=== PATIENT | female | born 1990 | race Hispanic/Latino ===

== ENCOUNTER 2019-05-31 15:00 | Emergency (ER) | payer SELFPAY ==
[~2019-05-31] VITALS: Ht 144.8 cm; Wt 52.2 kg
[~2019-05-31 15:00] MED LIST: DEPAKOTE500 MG; MOTRIN200 MG PO; ULTRACET TABLE1 EACH
[2019-05-31] MEDS ORDERED: DIPHENHYDRAMINE HCL 25 MG CAP PO ONE (15:30)
[2019-05-31] MEDS ORDERED: FAMOTIDINE 20 MG TAB PO ONE (15:30)
[2019-05-31] MEDS ORDERED: DIPHENHYDRAMINE HCL 25 MG CAP ONE (15:37)
[2019-05-31] MEDS ORDERED: FAMOTIDINE 20 MG TAB ONE (15:38)
--- NOTE | 2019-05-31 15:38 | NUR ---
No answer from lobby at this time.
== END 2019-05-31 15:46 | disposition left against medical advice (07) ==
LOC: ER 15:00
DX: M79.672 Pain in left foot (principal); M79.671 Pain in right foot

== ENCOUNTER 2025-02-08 09:53 | Emergency (ER) | payer OTHER ==
[~2025-02-08] VITALS: Ht 144.8 cm; Wt 68.0 kg
[2025-02-08 10:11] VITALS: PULSE 87; RESP 18; TEMP 98.2; O2SAT 100
[2025-02-08 10:50] LABS: BASOPHILS % 0.8 % (0.0-1.0); EOSINOPHILS # (AUTO) 0.2 (0.0-0.4); EOSINOPHILS % 4.6 % (0.0-6.0); HEMATOCRIT 33.3 % (34.2-44.1); LYMPHOCYTES # (AUTO) 1.9 (1.0-3.2); LYMPHOCYTES % 35.4 % (18.0-39.1); MEAN CORPUSCULAR VOLUME 73.3 fL (81-99); MONOCYTES # (AUTO) 0.5 (0.2-0.8); MONOCYTES % 8.8 % (4.4-11.3); NEUTROPHILS # (AUTO) 2.6 (2.1-6.9); NEUTROPHILS % 50.2 % (38.7-80.0); PLATELET COUNT 302 x10e3/uL (140-360); RED BLOOD COUNT 4.54 x10e6/uL (3.6-5.1); RED CELL DISTRIBUTION WIDTH 20.7 % (11.7-14.4); WHITE BLOOD COUNT 5.22 x10e3/uL (4.8-10.8)
[2025-02-08 11:11] LABS: INR 0.85; PROTHROMBIN TIME 12.2 seconds (11.9-14.5)
[2025-02-08 11:12] LABS: PARTIAL THROMBOPLASTIN TIME 28.6 seconds (23.8-35.5)
[2025-02-08 11:14] LABS: BILIRUBIN,URINE NEGATIVE (NEGATIVE); CLARITY,URINE SL CLOUDY (CLEAR); COLOR,URINE YELLOW (YELLOW); GLUCOSE, URINE NEGATIVE (NEGATIVE); KETONES,URINE NEGATIVE (NEGATIVE); LEUKOCYTE ESTERASE ,URINE NEGATIVE (NEGATIVE); NITRITE,URINE NEGATIVE (NEGATIVE); PH,URINE 5.5 (5 - 7); PROTEIN,URINE DIPSTICK NEGATIVE (NEGATIVE); URINE UROBILINOGEN 0.2 mg/dL (0.2 - 1)
[2025-02-08] MEDS: SODIUM CHLORIDE 0.9% 1000ML 1,000 ML IV STA (11:14)
[2025-02-08 11:52] LABS: BACTERIA,URINE MODERATE /HPF; EPITHELIAL CELLS,URINE MODERATE /LPF
[2025-02-08] MEDS ORDERED: IOPAMIDOL 370 MG/ML 100 ML INFUS..BTL INJ ONE (12:00)
[2025-02-08 12:33] LABS: ALBUMIN 3.9 g/dL (3.5-5.0); ALBUMIN/GLOBULIN RATIO 1.1 (0.8-2.0); ANION GAP 17.3 mmol/L (8-16); BILIRUBIN,TOTAL 0.2 mg/dL (0.2-1.2); CALCIUM 8.7 mg/dL (8.4-10.2); CREATININE, SERUM 0.75 mg/dL (0.57-1.11); POTASSIUM 4.3 mmol/L (3.5-5.1); TOTAL PROTEIN 7.3 g/dL (6.5-8.1)
[2025-02-08] MEDS ORDERED: DICYCLOMINE HCL20 MG PO (15:24)
== END 2025-02-08 15:39 | disposition home or self-care (01) ==
LOC: ER 09:55
DX: R10.31 Right lower quadrant pain (principal); N83.202 Unspecified ovarian cyst, left side; R11.2 Nausea with vomiting, unspecified; R19.7 Diarrhea, unspecified; F31.9 Bipolar disorder, unspecified; F41.9 Anxiety disorder, unspecified; F17.210 Nicotine dependence, cigarettes, uncomplicated
CPT/HCPCS: 36415; 71260; 74177; 80053; 81001; 83690; 84702; 85025; 85610; 85730; 99284; J7030; Q9967

== ENCOUNTER 2025-07-25 11:58 | Emergency (ER) | payer OTHER ==
[~2025-07-25] VITALS: Ht 144.8 cm; Wt 65.8 kg
[~2025-07-25 11:58] MED LIST changes: +DICYCLOMINE HCL20 MG PO
[2025-07-25 12:07] VITALS: TEMP 97.6
[2025-07-25] MEDS ORDERED: SODIUM CHLORIDE 0.9% 1000ML 1,000 ML ONE (12:17)
[2025-07-25] MEDS ORDERED: ONDANSETRON HCL INJ 2MG/ML 2ML 2 MG/ML VIAL ONE (12:17)
[2025-07-25 12:31] LABS: BASOPHILS % 0.3 % (0.0-1.0); EOSINOPHILS % 0.0 % (0.0-6.0); LYMPHOCYTES % 10.3 % (18.0-39.1); MONOCYTES % 2.9 % (4.4-11.3); NEUTROPHILS % 86.2 % (38.7-80.0); RED CELL DISTRIBUTION WIDTH 17.3 % (11.7-14.4)
[2025-07-25] MEDS: DIPHENHYDRAMINE HCL 25 MG CAP PO ONE (12:36)
[2025-07-25 12:46] LABS: EST GLOMERULAR FILTRATION RATE 117.0 ML/MIN (>=60)
[2025-07-25] MEDS: SODIUM CHLORIDE 0.9% 1000ML 1,000 ML IV SCH (12:48)
[2025-07-25] MEDS: KETOROLAC TROMETHAMINE 30 MG/ML VIAL IV STA (12:53)
[2025-07-25] MEDS: METOCLOPRAMIDE HCL 10 MG/2ML VIAL IV ONE (12:54)
[2025-07-25] MEDS: ONDANSETRON HCL INJ 2MG/ML 2ML 2 MG/ML VIAL IV STA (12:54)
[2025-07-25] MEDS: HALOPERIDOL LACTATE 5 MG/ML VIAL IV ONE (12:54)
[2025-07-25] MEDS: DIPHENHYDRAMINE HCL INJ 50 MG/ML VIAL IV STA (12:54)
[2025-07-25 14:11] VITALS: PULSE 72; RESP 22; O2SAT 100
== END 2025-07-25 14:55 | disposition home or self-care (01) ==
LOC: ER 12:07
DX: R20.0 Anesthesia of skin (principal); F41.0 Panic disorder [episodic paroxysmal anxiety]; F31.9 Bipolar disorder, unspecified
CPT/HCPCS: 36415; 80053; 84702; 85025; 99283; J1200; J1630; J1885; J2405; J2765; J7030

== ENCOUNTER 2025-08-13 08:34 | Emergency (ER) | payer OTHER ==
[~2025-08-13] VITALS: Ht 144.8 cm; Wt 65.8 kg
[2025-08-13 08:53] VITALS: PULSE 80; RESP 18; TEMP 98.6; O2SAT 100
[2025-08-13] MEDS ORDERED: DOXYCYCLINE HY100 MG PO (11:43)
[2025-08-13] MEDS: CEFTRIAXONE 500 MG VIAL IM ONE (11:52)
[2025-08-13] MEDS: WATER STERILE 10 ML VIAL INJ ONE (11:52)
[2025-08-15 23:08] LABS: CHLAMYDIA NUC AMP Negative (Negative)
== END 2025-08-13 12:14 | disposition home or self-care (01) ==
LOC: ER 08:40
DX: N73.9 Female pelvic inflammatory disease, unspecified (principal); F31.9 Bipolar disorder, unspecified; F41.9 Anxiety disorder, unspecified; F17.210 Nicotine dependence, cigarettes, uncomplicated
CPT/HCPCS: 87210; 87491; 87591; 99283; J0696